=== PATIENT | female | born 1985 | race Caucasian/White ===

== ENCOUNTER 2017-12-19 12:48 | Emergency (ER) | payer SELFPAY ==
[2017-12-19] MEDS ORDERED: HYDROCODONE/CHLORPHEN 5 ML/OSYR ONE (13:54)
[2017-12-19] MEDS ORDERED: ALBUTEROL 2.5 MG/3 ML NEB SOL ONE (13:54)
[2017-12-19] MEDS ORDERED: IPRATROPIUM BROM 0.5MG/2.5ML ONE (13:54)
[2017-12-19] MEDS ORDERED: CEFTRIAXONE 1000 MG/VIAL ONE (13:55)
[2017-12-19] MEDS ORDERED: FAMOTIDINE 20 MG TAB ONE (13:55)
[2017-12-19] MEDS ORDERED: predniSONE 20 MG TAB ONE (13:55)
[2017-12-19 14:21] LABS: Urine Blood 2+ (NEG); Urine Glucose NEGATIVE (NEG); Urine Protein TRACE (NEG)
[2017-12-19 14:27] LABS: Urine Bacteria 20-50 /HPF (<20)
[2017-12-19 14:28] LABS: Urine Culture Reflex Order REFLEXED
--- NOTE | 2017-12-19 15:08 | RAD REPORT ---
EXAM DESCRIPTION: Daniela Jolly (2 Views)12/19/2017 2:52 pm CLINICAL HISTORY: Cough COMPARISON: None FINDINGS: The lungs appear clear of acute infiltrate. The heart is normal size IMPRESSION: No acute abnormalities displayed
--- NOTE | 2017-12-19 15:09 | EDPHYS ---
Physician Documentation [facility] Name: Siomara Bhardwaj Age: 32 yrs Sex: Female : 1985 Arrival Date: 12/19/2017 Time: 12:49 Bed 20 Private MD: ED Physician Donny Bhat HPI: 12/19 13:52 This 32 yrs old Female presents to ER via Ambulatory with complaints of snw Cough, Chest Wall Pain. 13:52 The patient or guardian reports cough, flu symptoms, hoarse voice. Onset: The snw symptoms/episode began/occurred 1 week(s) ago, and became worse and became persistent. Severity of symptoms: At their worst the symptoms were moderate, severe. Associated signs and symptoms: Pertinent positives: earache, nausea, sore throat, vomiting. The patient has experienced similar episodes in the past. The patient has been recently seen by a physician: other ED one week ago - dx with rhinitis. 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 - Social history:: Smoking status: Patient uses tobacco products, smokes one-half pack cigarettes per day. ROS: 13:50 Eyes: Negative for injury, pain, redness, and discharge. snw 13:50 Neck: Negative for injury, pain, and swelling, Cardiovascular: Negative for chest pain, palpitations, and edema. 13:50 Back: Negative for injury and pain, : Negative for injury, bleeding, discharge, and swelling, MS/Extremity: Negative for injury and deformity, Skin: Negative for injury, rash, and discoloration, Neuro: Negative for headache, weakness, numbness, tingling, and seizure. 13:50 Constitutional: Positive for body aches, fatigue, fever, malaise. 13:50 ENT: Positive for ear pain, nasal discharge, sinus congestion, sore throat. 13:50 Respiratory: Positive for cough, shortness of breath, wheezing. 13:50 Abdomen/GI: Positive for vomiting. Exam: 13:50 Head/Face: Normocephalic, atraumatic. Eyes: Pupils equal round and reactive to light, snw extra-ocular motions intact. Lids and lashes normal. Conjunctiva and sclera are non-icteric and not injected. Cornea within normal limits. Periorbital areas with no swelling, redness, or edema. 13:50 Neck: Trachea midline, no thyromegaly or masses palpated, and no cervical lymphadenopathy. Supple, full range of motion without nuchal rigidity, or vertebral point tenderness. No Meningismus. Chest/axilla: Normal chest wall appearance and motion. Nontender with no deformity. No lesions are appreciated. Cardiovascular: Regular rate and rhythm with a normal S1 and S2. No gallops, murmurs, or rubs. Normal PMI, no JVD. No pulse deficits. 13:50 Abdomen/GI: Soft, non-tender, with normal bowel sounds. No distension or tympany. No guarding or rebound. No evidence of tenderness throughout. Back: No spinal tenderness. No costovertebral tenderness. Full range of motion. Skin: Warm, dry with normal turgor. Normal color with no rashes, no lesions, and no evidence of cellulitis. MS/ Extremity: Pulses equal, no cyanosis. Neurovascular intact. Full, normal range of motion. Neuro: Awake and alert, GCS 15, oriented to person, place, time, and situation. Cranial nerves II-XII grossly intact. Motor strength 5/5 in all extremities. Sensory grossly intact. Cerebellar exam normal. Normal gait. 13:50 Constitutional: The patient appears alert, awake, anxious, uncomfortable. 13:50 ENT: TM's: bulging, on the left, erythema, Examination of the other ear shows no obvious abnormality, Nose: is normal, Mouth: is normal, Posterior pharynx: erythema, that is moderate, Voice: is hoarse. 13:50 Respiratory: the patient does not display signs of respiratory distress, Respirations: normal, shallow respirations, Breath sounds: bronchial sounds, rhonchi, that are mild, are located in both bases, + upper airway congestion. Vital Signs: 13:02 BP 159 / 95; Pulse 74; Resp 16; Temp 98.4; Pulse Ox 94% on R/A; Weight 65.77 kg; Height la1 5 ft. 7 in. (170.18 cm); 14:00 BP 149 / 84; Pulse 56; Resp 19; Pulse Ox 94% on R/A; rb1 14:30 BP 134 / 80; Pulse 91; Resp 18; Pulse Ox 94% on R/A; rb1 15:20 BP 133 / 72; Pulse 89; Resp 17; Pulse Ox 94% on R/A; rb1 13:02 Body Mass Index 22.71 (65.77 kg, 170.18 cm) la1 MDM: 13:28 Patient medically screened. snw 15:09 Data reviewed: vital signs, nurses notes. Data interpreted: Pulse oximetry: on room air snw is 94 %. Interpretation: acceptable. Counseling: I had a detailed discussion with the patient and/or guardian regarding: the historical points, exam findings, and any diagnostic results supporting the discharge/admit diagnosis, the presence of at least one elevated blood pressure reading (>120/80) during this emergency department visit, radiology results, the need for outpatient follow up, to return to the emergency department if symptoms worsen or persist or if there are any questions or concerns that arise at home. Response to treatment: the patient's symptoms have mildly improved after treatment. Special discussion: Based on the history and exam findings, there is no indication for further emergent testing or inpatient evaluation. I discussed with the patient/guardian the need to see the primary care provider for further evaluation of the symptoms. 12/19 12:58 Order name: Urine Microscopic Only; Complete Time: 14:32 snw 12/19 13:52 Order name: Urine Dipstick--Ancillary (enter results); Complete Time: 14:22 eb 12/19 12:58 Order name: Chest Pa And Lat (2 Views) XRAY; Complete Time: 15:11 snw 12/19 13:52 Order name: Urine --Ancillary (enter results); Complete Time: 14:22 eb 12/19 14:29 Order name: Urine Culture EDMS 12/19 12:58 Order name: Urine Test (obtain specimen); Complete Time: 13:49 snw 12/19 12:58 Order name: Urine Dipstick-Ancillary (obtain specimen); Complete Time: 13:49 snw Administered Medications: 13:55 Drug: Tussionex Pennkinetic ER 5 ml Route: PO; rb1 14:30 Follow up: Response: No adverse reaction; Other; coughing decrease. rb1 13:55 Drug: predniSONE 40 mg Route: PO; rb1 14:30 Follow up: Response: No adverse reaction rb1 13:55 Drug: Pepcid 20 mg Route: PO; rb1 14:30 Follow up: Response: No adverse reaction rb1 13:55 Drug: Rocephin (cefTRIAXone) 1 grams Route: IM; Site: right gluteus; rb1 14:15 Follow up: Response: No adverse reaction rb1 13:55 Drug: Albuterol - atroVENT (3:1) (2.5 mg - 0.5 mg) 3 ml Route: Nebulizer; rb1 14:20 Follow up: Response: No adverse reaction; Marked relief of symptoms rb1 Disposition: 12/19/17 15:08 Discharged to Home. Impression: Bronchitis, not specified as acute or chronic, Acute pharyngitis. - Condition is Stable. - Discharge Instructions: Acute Bronchitis, Fever, Adult, Hypertension, How to Use an Inhaler, Pharyngitis, Smoking Cessation, Cool Mist Vaporizers, Cough, Adult, Rehydration, Adult. - Prescriptions for Tessalon Perles 100 mg Oral Capsule - take 1 capsule by ORAL route every 8 hours As needed; 15 capsule. Zithromax Z- Cristhian 250 mg Oral Tablet - take 1 tablet by ORAL route as directed for 5 days Day 1 - take two (2) tablets one time. Day 2, 3, 4 , 5 take one (1) tablet once daily.; 6 tablet. Prednisone 20 mg Oral Tablet - take 2 tablet by ORAL route once daily for 5 days; 10 tablet. Albuterol Sulfate 90 mcg/actuation - inhale 1-2 puff by INHALATION route every 4-6 hours; 1 Inhaler. - Work release form, Medication Reconciliation Form, Thank You Letter, Antibiotic Education, Prescription Opioid Use form. - Follow up: Private Physician; When: 2 - 3 days; Reason: Recheck today's complaints, Continuance of care, Re-evaluation by your physician. Follow up: Emergency Department; When: As needed; Reason: Worsening of condition. Signatures: Dispatcher [employer] EDIL Soni Odell FNP-C FNP-Song Christine RN RN la1 Alesia Brantley, RN RN rb1
--- NOTE | 2017-12-19 15:09 | ER ---
Nurse's Notes [facility] Name: Siomara Bhardwaj Age: 32 yrs Sex: Female : 1985 Arrival Date: 12/19/2017 Time: 12:49 Bed 20 Private MD: Diagnosis: Bronchitis, not specified as acute or chronic;Acute pharyngitis Presentation: 12/19 13:01 Presenting complaint: Patient states: I have been having a productive cough and SOB for la1 the last 5 days. Transition of care: patient was not received from another setting of care. Onset of symptoms was December 19, 2017. Initial Sepsis Screen: Does the patient meet any 2 criteria? No. Patient's initial sepsis screen is negative. Does the patient have a suspected source of infection? No. Patient's initial sepsis screen is negative. Care prior to arrival: None. 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 - Social history:: Smoking status: Patient uses tobacco products, smokes one-half pack cigarettes per day. Screenin:26 Abuse screen: Denies threats or abuse. Nutritional screening: No deficits noted. rb1 Tuberculosis screening: No symptoms or risk factors identified. Fall Risk None identified. Assessment: 13:28 General: Appears uncomfortable, Behavior is calm, cooperative, Denies fever. Pain: rb1 Complains of pain in ribs and throat Pain does not radiate. Pain currently is 9 out of 10 on a pain scale. Pain began x 5 days Aggravated by coughing. Neuro: Level of Consciousness is awake, alert, obeys commands, Oriented to person, place, time, situation. Cardiovascular: Capillary refill < 3 seconds is brisk in bilateral fingers. Respiratory: Reports cough that is dry, persistent Airway is patent Respiratory effort is even, unlabored, Respiratory pattern is regular, symmetrical, Breath sounds are diminished in right posterior lower lobe. GI: Reports vomiting, vomiting induced by cough. : No signs and/or symptoms were reported regarding the genitourinary system. EENT: Throat is reddened. Derm: Skin is pink, warm \T\ dry. Musculoskeletal: Range of motion: intact in all extremities. 14:25 Reassessment: Patient appears in no apparent distress at this time. Patient and/or rb1 family updated on plan of care and expected duration. Pain level reassessed. Patient is alert, oriented x 3, equal unlabored respirations, skin warm/dry/pink. 15:20 Reassessment: Patient appears in no apparent distress at this time. No changes from rb1 previously documented assessment. Vital Signs: 13:02 BP 159 / 95; Pulse 74; Resp 16; Temp 98.4; Pulse Ox 94% on R/A; Weight 65.77 kg; Height la1 5 ft. 7 in. (170.18 cm); 14:00 BP 149 / 84; Pulse 56; Resp 19; Pulse Ox 94% on R/A; rb1 14:30 BP 134 / 80; Pulse 91; Resp 18; Pulse Ox 94% on R/A; rb1 15:20 BP 133 / 72; Pulse 89; Resp 17; Pulse Ox 94% on R/A; rb1 13:02 Body Mass Index 22.71 (65.77 kg, 170.18 cm) la1 ED Course: 12:49 Patient arrived in ED. as 12:58 Son[facility] Od[facility]C [facility] snw 12:58 Donny Bhat MD is Attending Physician. snw 13:02 Triage completed. la1 13:02 Arm band placed on left wrist. la1 13:26 Alesia Brantley, RN is Primary Nurse. rb1 13:26 Patient has correct armband on for positive identification. Placed in gown. Bed in low rb1 position. Call light in reach. Side rails up X 1. Pulse ox on. NIBP on. 13:26 Patient maintains SpO2 saturation greater than 95% on room air. rb1 13:49 Urine collected: clean catch specimen, cloudy. dh3 14:44 Patient moved to radiology via wheelchair. ag1 14:46 Chest Pa And Lat (2 Views) XRAY In Process Unspecified. EDMS 15:30 No provider procedures requiring assistance completed. Patient did not have IV access rb1 during this emergency room visit. Administered Medications: 13:55 Drug: Tussionex Pennkinetic ER 5 ml Route: PO; rb1 14:30 Follow up: Response: No adverse reaction; Other; coughing decrease. rb1 13:55 Drug: predniSONE 40 mg Route: PO; rb1 14:30 Follow up: Response: No adverse reaction rb1 13:55 Drug: Pepcid 20 mg Route: PO; rb1 14:30 Follow up: Response: No adverse reaction rb1 13:55 Drug: Rocephin (cefTRIAXone) 1 grams Route: IM; Site: right gluteus; rb1 14:15 Follow up: Response: No adverse reaction rb1 13:55 Drug: Albuterol - atroVENT (3:1) (2.5 mg - 0.5 mg) 3 ml Route: Nebulizer; rb1 14:20 Follow up: Response: No adverse reaction; Marked relief of symptoms rb1 Outcome: 15:08 Discharge ordered by MD. durant 15:31 Patient left the ED. rb1 15:31 Discharged to home ambulatory. rb1 15:31 Condition: stable 15:31 Discharge instructions given to patient, Instructed on discharge instructions, follow up and referral plans. medication usage, Demonstrated understanding of instructions, follow-up care, medications, Prescriptions given X 4. Addendum: 12/24/2017 09:53 Addendum: Culture Results: Positive urine culture. Phone call Attempt #1 no answer, s s left VM. Signatures: Dispatcher [employer] EDMS Soni Odell, STATISTICAL FINANCIAL ANALYST-C STATISTICAL FINANCIAL ANALYST-Indigow Areli Richards Shelby, RN RN ss Attema, Lee, RN RN la1 Gallaway, Ashley [facility] Alesia Brantley RN RN rb1 Jodi Manuel 3
== END 2017-12-19 15:31 | disposition home or self-care (01) ==
LOC: ER 12:48
DX: J40 Bronchitis, not specified as acute or chronic (principal); J02.9 Acute pharyngitis, unspecified; Z88.6 Allergy status to analgesic agent
CPT/HCPCS: 71046; 81003; 81015; 81025; 87077; 87086; 87088; 87186; 94640; 96372; 99285; J7512

== ENCOUNTER 2018-03-06 13:17 | Emergency (ER) | payer SELFPAY ==
--- NOTE | 2018-03-06 14:33 | EDPHYS ---
Physician Documentation [facility] Name: Siomara Bhardwaj Age: 32 yrs Sex: Female : 1985 Arrival Date: 03/06/2018 Time: 13:20 Bed 12 Private MD: None, None ED Physician Uriel Akhtar HPI: 03/06 14:00 This 32 yrs old Female presents to ER via Ambulatory with complaints of Hand jmm Pain. 14:00 The patient or guardian reports pain. Onset: The symptoms/episode began/occurred today. jmm This is a 32 year old female with no chronic medical conditions that presents to the ED with bilateral hand pain beginning earlier today. The patient states having episodes of tingling to the hands. Patient also complains of ongoing pain to her legs for the past 3 weeks. The patient describes the pain as if she has just run a marathon. Denies fever.. 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 - Social history:: Smoking status: Patient uses tobacco products, smokes one-half pack cigarettes per day, Patient/guardian denies using alcohol. - Ebola Screening: : Patient negative for fever greater than or equal to 101.5 degrees Fahrenheit, and additional compatible Ebola Virus Disease symptoms Patient denies exposure to infectious person Patient denies travel to an Ebola-affected area in the 21 days before illness onset. ROS: 14:00 Constitutional: Negative for fever, chills, and weight loss, Cardiovascular: Negative jmm for chest pain, palpitations, and edema, Respiratory: Negative for shortness of breath, cough, wheezing, and pleuritic chest pain, Abdomen/GI: Negative for abdominal pain, nausea, vomiting, diarrhea, and constipation, Back: Negative for injury and pain, : Negative for injury, bleeding, discharge, and swelling. 14:00 MS/extremity: Positive for pain. 14:00 Neuro: Positive for tingling. 14:00 All other systems are negative. Exam: 14:00 Constitutional: This is a well developed, well nourished patient who is awake, alert, jmm and in no acute distress. Head/Face: atraumatic. Chest/axilla: Normal chest wall appearance and motion. Cardiovascular: Regular rate and rhythm. No edema appreciated Respiratory: Normal respirations, no respiratory distress appreciated Abdomen/GI: Non distended, soft Back: Normal ROM 14:00 Musculoskeletal/extremity: FROM appreciated to all extremitites. Tinnel sign bilaterally to the flexor retinaculum of the wrist. full reflexes and strength against resistance appreciated to the knee joints, NVI. 14:00 Skin: Appearance: Color: normal in color. 14:00 Neuro: Orientation: is normal, Mentation: is normal, Memory: is normal, Gait: is steady. 14:00 Psych: Behavior/mood is pleasant, cooperative. Vital Signs: 13:30 BP 115 / 74; Pulse 60; Resp 18; Temp 98.9(O); Pulse Ox 100% on R/A; Weight 72.57 kg; hj Height 5 ft. 6 in. (167.64 cm); Pain 6/10; 13:30 Body Mass Index 25.82 (72.57 kg, 167.64 cm) hj MDM: 14:00 Patient medically screened. jmm 14:00 Counseling: I had a detailed discussion with the patient and/or guardian regarding: the [facility] historical points, exam findings, and any diagnostic results supporting the discharge/admit diagnosis, the need for outpatient follow up, to return to the emergency department if symptoms worsen or persist or if there are any questions or concerns that arise at home. 14:30 ED course: Patient's PE findings are not concerning for an acute neurologic process, jmm due to complaints of paresthesias patient is given follow up information with neurology. I discussed patient care with Dr. Akhtar whom agrees with the plan of care. . 14:31 Data reviewed: vital signs, nurses notes. jm Administered Medications: No medications were administered Disposition: 03/06/18 14:32 Discharged to Home. Impression: Paresthesias. - Condition is Stable. - Discharge Instructions: Paresthesia. - Prescriptions for Medrol (Cristhian) 4 mg Oral Tablets, Dose Pack - take 1 tablet by ORAL route as directed - follow package instructions; 1 packet. - Medication Reconciliation Form, Thank You Letter, Antibiotic Education, Prescription Opioid Use form. - Follow up: Shawn Barroso MD; When: 2 - 3 days; Reason: Continuance of care. Addendum: 03/08/2018 09:17 Co-signature as Attending Physician, Uriel Akhtar MD I agree with the assessment and c figueroa plan of care. Signatures: Uriel Akhtar MD MD cha Mickail, Joel, PA PA jmm Williams, Irene, RN RN Apolinar Wilde RN RN Corrections: (The following items were deleted from the chart) 03/06 14:39 14:32 03/06/2018 14:32 Discharged to Home. Impression: Paresthesias. Condition is iw Stable. Forms are Medication Reconciliation Form, Thank You Letter, Antibiotic Education, Prescription Opioid Use. Follow up: Shawn Barroso; When: 2 - 3 days; Reason: Continuance of care. [facility]
--- NOTE | 2018-03-06 14:33 | ER ---
Nurse's Notes [facility] Name: Siomara Bhardwaj Age: 32 yrs Sex: Female : 1985 Arrival Date: 03/06/2018 Time: 13:20 Bed 12 Private MD: None, None Diagnosis: Paresthesias Presentation: 03/06 13:27 Presenting complaint: Patient states: my both hands are painful and swollen for 2 days hj already, i woke up with it; denies trauma to the area; reports tingling;. Transition of care: patient was not received from another setting of care. Onset of symptoms was March 06, 2018. Risk Assessment: Do you want to hurt yourself or someone else? Patient reports no desire to harm self or others. Initial Sepsis Screen: Does the patient meet any 2 criteria? No. Patient's initial sepsis screen is negative. Does the patient have a suspected source of infection? No. Patient's initial sepsis screen is negative. Care prior to arrival: None. 13:27 Method Of Arrival: Ambulatory 13:27 Acuity: JAIRO 4 hj Triage Assessment: 13:29 General: Appears in no apparent distress. uncomfortable, Behavior is calm, cooperative, hj appropriate for age. Pain: Complains of pain in right hand and left hand Pain currently is 6 out of 10 on a pain scale. 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 - Social history:: Smoking status: Patient uses tobacco products, smokes one-half pack cigarettes per day, Patient/guardian denies using alcohol. - Ebola Screening: : Patient negative for fever greater than or equal to 101.5 degrees Fahrenheit, and additional compatible Ebola Virus Disease symptoms Patient denies exposure to infectious person Patient denies travel to an Ebola-affected area in the 21 days before illness onset. Screenin:29 Abuse screen: Denies threats or abuse. Denies injuries from another. Nutritional hj screening: No deficits noted. Tuberculosis screening: No symptoms or risk factors identified. Fall Risk None identified. Assessment: 14:00 General: Appears in no apparent distress. comfortable, Behavior is calm, cooperative. iw Pain: Complains of pain in left hand and right hand. Neuro: Level of Consciousness is awake, alert, obeys commands, Moves all extremities. Full function. Cardiovascular: Patient's skin is warm and dry. Respiratory: Respiratory effort is even, unlabored, Respiratory pattern is regular. Derm: Skin is pink, warm \T\ dry. normal. Musculoskeletal: Range of motion: intact in all extremities. Vital Signs: 13:30 BP 115 / 74; Pulse 60; Resp 18; Temp 98.9(O); Pulse Ox 100% on R/A; Weight 72.57 kg; hj Height 5 ft. 6 in. (167.64 cm); Pain 6/10; 13:30 Body Mass Index 25.82 (72.57 kg, 167.64 cm) hj ED Course: 13:20 Patient arrived in ED. mr 13:20 None, None is Private Physician. mr 13:28 Triage completed. hj 13:30 Arm band placed on left wrist. hj 13:30 Patient has correct armband on for positive identification. Bed in low position. Call hj light in reach. Side rails up X 1. 13:48 Abraham Holt PA is PHCP. [facility] 13:48 Uriel Akhtar MD is Attending Physician. [facility] 14:31 Shawn Barroso MD is Referral Physician. [facility] 14:37 No provider procedures requiring assistance completed. Patient did not have IV access iw during this emergency room visit. 14:39 Deandra Beltran, RN is Primary Nurse. iw Administered Medications: No medications were administered Outcome: 14:32 Discharge ordered by . [facility] 14:38 Discharged to home ambulatory, with family. iw 14:38 Condition: good 14:38 Discharge instructions given to patient, family, Instructed on discharge instructions, follow up and referral plans. Demonstrated understanding of instructions, follow-up care, medications, Prescriptions given X 1. 14:39 Patient left the ED. iw Signatures: Abraham Holt PA PA jmm Rivera, Maria mr Deandra Beltran, RN RN Apolinar Wilde RN RN Corrections: (The following items were deleted from the chart) 13:32 13:30 Pulse 60bpm; Resp 18bpm; Pulse Ox 100% RA; Temp 98.9F Oral; 72.57 kg; Height 5 hj ft. 6 in.; BMI: 25.8; Pain 6/10; hj
== END 2018-03-06 14:39 | disposition home or self-care (01) ==
LOC: ER 13:17
DX: R20.2 Paresthesia of skin (principal); F17.210 Nicotine dependence, cigarettes, uncomplicated; Z88.6 Allergy status to analgesic agent
CPT/HCPCS: 99282

== ENCOUNTER 2018-04-30 00:17 | Emergency (ER) | payer SELFPAY ==
--- NOTE | 2018-04-30 01:06 | ER ---
Nurse's Notes [facility] Name: Siomara Bhardwaj Age: 32 yrs Sex: Female : 1985 Arrival Date: 04/30/2018 Time: 00:21 Bed 2 Private MD: Diagnosis: R labia rash Presentation: 04/30 00:26 Presenting complaint: Patient states: she noticed a "bump on my girl parts" this bb morning which has gotten progressively worse throughout the day with more pain and swelling. Transition of care: patient was not received from another setting of care. Onset of symptoms was April 29, 2018. Risk Assessment: Do you want to hurt yourself or someone else? Patient reports no desire to harm self or others. Initial Sepsis Screen: Does the patient meet any 2 criteria? No. Patient's initial sepsis screen is negative. Does the patient have a suspected source of infection? No. Patient's initial sepsis screen is negative. Care prior to arrival: None. 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 - Social history:: Smoking status: Patient uses tobacco products, smokes one-half pack cigarettes per day, Patient/guardian denies using alcohol, street drugs. - Ebola Screening: : No symptoms or risks identified at this time. - Family history:: not pertinent. - Hospitalizations: : No recent hospitalization is reported. Screenin:37 Abuse screen: Denies threats or abuse. Nutritional screening: No deficits noted. fc Tuberculosis screening: No symptoms or risk factors identified. Fall Risk None identified. Assessment: 00:38 General: Appears uncomfortable, slender, well groomed, Behavior is calm, cooperative, fc appropriate for age. Pain: Complains of pain in groin Pain currently is 7 out of 10 on a pain scale. Quality of pain is described as aching, dull, throbbing, Pain began gradually, Is continuous. Neuro: Level of Consciousness is awake, alert, obeys commands, Oriented to person, place, time, situation. Cardiovascular: No deficits noted. Respiratory: No deficits noted. GI: No deficits noted. : No deficits noted. EENT: No deficits noted. Derm: Skin is pink, warm \\T\\ dry. Abscess located on groin is quarter sized, is hot to touch, is red, is raised, with 2 small pinpoint leasions. Musculoskeletal: Circulation, motion, and sensation intact. Capillary refill < 3 seconds, Range of motion: intact in all extremities. 01:00 Reassessment: No changes from previously documented assessment. Patient and/or family fc updated on plan of care and expected duration. Pain level reassessed. Patient is alert, oriented x 3, equal unlabored respirations, skin warm/dry/pink. Seen by Dr Richardson. 01:19 Reassessment: Patient appears in no apparent distress at this time. Patient is alert, aa1 oriented x 3, equal unlabored respirations, skin warm/dry/pink. Discussed d/c \\T\\ f/u instructions with pt \\T\\ significant other; denies questions or concerns at this time. Vital Signs: 00:28 BP 116 / 70; Pulse 61; Resp 16 S; Temp 99; Pulse Ox 98% on R/A; Weight 68.04 kg (R); bb Height 5 ft. 6 in. (167.64 cm) (R); Pain 7/10; 00:28 Body Mass Index 24.21 (68.04 kg, 167.64 cm) bb ED Course: 00:21 Patient arrived in ED. es 00:27 Triage completed. bb 00:28 Arm band placed on right wrist. Patient placed in an exam room, on a stretcher, on bb pulse oximetry. Family accompanied patient. 00:31 Lc Richardson MD is Attending Physician. wa 00:37 Patient has correct armband on for positive identification. Placed in gown. Bed in low fc position. Call light in reach. 01:00 outer vaginal exam. fc 01:13 Patient did not have IV access during this emergency room visit. fc Administered Medications: No medications were administered Outcome: 01:06 Discharge ordered by . wa 01:19 Discharged to home ambulatory, with significant other. aa1 01:19 Condition: good 01:19 Discharge instructions given to patient, significant other, Instructed on discharge instructions, follow up and referral plans. medication usage, Demonstrated understanding of instructions, follow-up care, medications, Prescriptions given X 2. 01:21 Patient left the ED. aa1 Signatures: Nicole Alexander RN RN aa1 Erika Handy Felicia, RN RN fc Suyapa Bell RN RN Lc Richardson MD MD wa Corrections: (The following items were deleted from the chart) 01:12 00:38 Derm: Skin is pink, warm \\T\\ dry. Abscess located on groin is quarter sized, is hot fc to touch, is red, is raised, fc
--- NOTE | 2018-04-30 01:06 | EDPHYS ---
Physician Documentation [facility] Name: Siomara Bhardwaj Age: 32 yrs Sex: Female : 1985 Arrival Date: 04/30/2018 Time: 00:21 Bed 2 Private MD: ED Physician Lc Richardson HPI: 04/30 01:01 This 32 yrs old Female presents to ER via Ambulatory with complaints of wa POSSIBLE STAPH INFECTION. 01:01 The patient presents with pain and rash over the R vulva. . Onset: The symptoms/episode wa began/occurred yesterday. Modifying factors: The symptoms are alleviated by nothing, the symptoms are aggravated by touch or rubbing on clothes. Associated signs and symptoms: Pertinent negatives: dysuria, fever, urinary frequency, vaginal discharge. Severity of symptoms: At their worst the symptoms were moderate, in the emergency department the symptoms are unchanged. The patient has not experienced similar symptoms in the past. The patient has not recently seen a physician. spouse has h/o MRSA so believes this is. 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 - Social history:: Smoking status: Patient uses tobacco products, smokes one-half pack cigarettes per day, Patient/guardian denies using alcohol, street drugs. - Ebola Screening: : No symptoms or risks identified at this time. - Family history:: not pertinent. - Hospitalizations: : No recent hospitalization is reported. ROS: 01:03 Positive for rash on R labia. wa 01:03 Constitutional: Negative for fever, chills, and weight loss, Eyes: Negative for injury, pain, redness, and discharge, ENT: Negative for injury, pain, and discharge, Neck: Negative for injury, pain, and swelling, Cardiovascular: Negative for chest pain, palpitations, and edema, Respiratory: Negative for shortness of breath, cough, wheezing, and pleuritic chest pain, Abdomen/GI: Negative for abdominal pain, nausea, vomiting, diarrhea, and constipation, Back: Negative for injury and pain, MS/Extremity: Negative for injury and deformity, Skin: Negative for injury, rash, and discoloration, Neuro: Negative for headache, weakness, numbness, tingling, and seizure. 01:03 All other systems are negative. Exam: 01:03 Constitutional: This is a well developed, well nourished patient who is awake, alert, wa and in no acute distress. Head/Face: Normocephalic, atraumatic. Eyes: Pupils equal round and reactive to light, extra-ocular motions intact. Lids and lashes normal. Conjunctiva and sclera are non-icteric and not injected. Cornea within normal limits. Periorbital areas with no swelling, redness, or edema. ENT: Nares patent. No nasal discharge, no septal abnormalities noted. Tympanic membranes are normal and external auditory canals are clear. Oropharynx with no redness, swelling, or masses, exudates, or evidence of obstruction, uvula midline. Mucous membranes moist. Neck: Trachea midline, no thyromegaly or masses palpated, and no cervical lymphadenopathy. Supple, full range of motion without nuchal rigidity, or vertebral point tenderness. No Meningismus. Chest/axilla: Normal chest wall appearance and motion. Nontender with no deformity. No lesions are appreciated. Cardiovascular: Regular rate and rhythm with a normal S1 and S2. No gallops, murmurs, or rubs. Normal PMI, no JVD. No pulse deficits. Respiratory: Lungs have equal breath sounds bilaterally, clear to auscultation and percussion. No rales, rhonchi or wheezes noted. No increased work of breathing, no retractions or nasal flaring. Abdomen/GI: Soft, non-tender, with normal bowel sounds. No distension or tympany. No guarding or rebound. No evidence of tenderness throughout. Back: No spinal tenderness. No costovertebral tenderness. Full range of motion. Skin: Warm, dry with normal turgor. Normal color with no rashes, no lesions, and no evidence of cellulitis. MS/ Extremity: Pulses equal, no cyanosis. Neurovascular intact. Full, normal range of motion. Neuro: Awake and alert, GCS 15, oriented to person, place, time, and situation. Cranial nerves II-XII grossly intact. Motor strength 5/5 in all extremities. Sensory grossly intact. Cerebellar exam normal. Normal gait. Psych: Awake, alert, with orientation to person, place and time. Behavior, mood, and affect are within normal limits. 01:03 : Pelvic Exam: External exam: single blistered lesion R labia with surrounding edema and erythema. no fluctuance, the nurse was present for the exam. Vital Signs: 00:28 BP 116 / 70; Pulse 61; Resp 16 S; Temp 99; Pulse Ox 98% on R/A; Weight 68.04 kg (R); bb Height 5 ft. 6 in. (167.64 cm) (R); Pain 7/10; 00:28 Body Mass Index 24.21 (68.04 kg, 167.64 cm) bb MDM: 00:31 Patient medically screened. wa 01:04 Differential diagnosis: not ripe for I\T\D. painful to touch. consider bacterial vs wa herpetic source. Data reviewed: vital signs, nurses notes. 01:06 Patient medically screened. wa Administered Medications: No medications were administered Disposition: 04/30/18 01:06 Discharged to Home. Impression: R labia rash. - Condition is Stable. - Discharge Instructions: Rash, [id number]. - Prescriptions for Clindamycin HCl 300 mg Oral Capsule - take 1 capsule by ORAL route every 8 hours for 5 days; 15 capsule. Acyclovir 800 mg Oral Tablet - take 1 tablet by ORAL route 5 times per day for 5 days; 25 tablet. - Medication Reconciliation Form, Thank You Letter, Antibiotic Education, Prescription Opioid Use form. - Follow up: Private Physician; When: 1 - 2 days; Reason: Re-evaluation by your physician. - Problem is new. - Symptoms have improved. - Notes: see your doctor for further evaluation as discussed. return to ER for rapidly worsening concerns Signatures: Nicole Alexander RN RN aa1 Suyapa Bell RN RN bb Lc Richardson MD MD wa Corrections: (The following items were deleted from the chart) 01:21 01:06 04/30/2018 01:06 Discharged to Home. Impression: R labia rash. Condition is aa1 Stable. Forms are Medication Reconciliation Form, Thank You Letter, Antibiotic Education, Prescription Opioid Use. Follow up: Private Physician; When: 1 - 2 days; Reason: Re-evaluation by your physician. Problem is new. Symptoms have improved. wa
== END 2018-04-30 01:21 | disposition home or self-care (01) ==
LOC: ER 00:17
DX: R21 Rash and other nonspecific skin eruption (principal); I10 Essential (primary) hypertension; F17.210 Nicotine dependence, cigarettes, uncomplicated; Z88.2 Allergy status to sulfonamides; Z88.6 Allergy status to analgesic agent
CPT/HCPCS: 99283

== ENCOUNTER 2019-04-23 13:51 | Emergency (ER) | payer SELFPAY ==
--- OUTSIDE RECORDS SUMMARY | 2019-04-23 13:53 | XMS REPORT ---
:1985 [facility] [address] [place] [id number] Care Team Providers Name Role Phone Unavailable Unavailable Unavailable Problems This patient has no known problems. Allergies, Adverse Reactions, Alerts This patient has no known allergies or adverse reactions. Medications This patient has no known medications.
--- NOTE | 2019-04-23 15:42 | EDPHYS ---
Physician Documentation [facility] Name: Siomara Bhardwaj Age: 33 yrs Sex: Female : 1985 Arrival Date: 04/23/2019 Time: 13:54 Bed 12 Private MD: ED Physician Uriel Akhtar HPI: 04/23 15:38 This 33 yrs old Female presents to ER via Ambulatory with complaints of Rib pm1 pain. 15:38 Patient was lifting heavy object at work and felt a pop on right anterior rib area. pm1 Onset: The symptoms/episode began/occurred 3 day(s) ago. Severity of symptoms: in the emergency department the symptoms are unchanged. The patient has not experienced similar symptoms in the past. The patient has not recently seen a physician. No fever, shortness of breath, cough, abdominal pain, n/v/d. 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 - Social history:: Smoking status: Patient uses tobacco products, smokes one-half pack cigarettes per day. - Ebola Screening: : No symptoms or risks identified at this time. ROS: 15:38 Constitutional: Negative for fever, chills, and weight loss, Eyes: Negative for injury, pm1 pain, redness, and discharge, ENT: Negative for injury, pain, and discharge, Neck: Negative for injury, pain, and swelling, Cardiovascular: Negative for palpitations, and edema, Positive for right sided rib pain Respiratory: Negative for shortness of breath, cough, wheezing, and pleuritic chest pain, Abdomen/GI: Negative for abdominal pain, nausea, vomiting, diarrhea, and constipation, Back: Negative for injury and pain, MS/Extremity: Negative for injury and deformity, Skin: Negative for injury, rash, and discoloration, Neuro: Negative for headache, weakness, numbness, tingling, and seizure. Exam: 15:38 Constitutional: This is a well developed, well nourished patient who is awake, alert, pm1 and in no acute distress. Head/Face: Normocephalic, atraumatic. Eyes: Pupils equal round and reactive to light, extra-ocular motions intact. Lids and lashes normal. Conjunctiva and sclera are non-icteric and not injected. Cornea within normal limits. Periorbital areas with no swelling, redness, or edema. ENT: Nares patent. No nasal discharge, no septal abnormalities noted. Tympanic membranes are normal and external auditory canals are clear. Oropharynx with no redness, swelling, or masses, exudates, or evidence of obstruction, uvula midline. Mucous membranes moist. Neck: Trachea midline, no thyromegaly or masses palpated, and no cervical lymphadenopathy. Supple, full range of motion without nuchal rigidity, or vertebral point tenderness. No Meningismus. Cardiovascular: Regular rate and rhythm with a normal S1 and S2. No gallops, murmurs, or rubs. Normal PMI, no JVD. No pulse deficits. Respiratory: Lungs have equal breath sounds bilaterally, clear to auscultation and percussion. No rales, rhonchi or wheezes noted. No increased work of breathing, no retractions or nasal flaring. 15:38 Abdomen/GI: Soft, non-tender, with normal bowel sounds. No distension or tympany. No guarding or rebound. No evidence of tenderness throughout. Back: No spinal tenderness. No costovertebral tenderness. Full range of motion. Skin: Warm, dry with normal turgor. Normal color with no rashes, no lesions, and no evidence of cellulitis. MS/ Extremity: Pulses equal, no cyanosis. Neurovascular intact. Full, normal range of motion. 15:38 Chest/axilla: Inspection: normal, Palpation: tenderness, of the right anterior lower rib cage , that totally reproduces the patient's complaints. 15:38 Neuro: Orientation: is normal, Motor: is normal, moves all fours. Vital Signs: 14:23 BP 114 / 77; Pulse 64; Resp 18; Temp 97.6; Pulse Ox 100% on R/A; Weight 54.43 kg; ph Height 5 ft. 6 in. (167.64 cm); Pain 7/10; 14:23 Body Mass Index 19.37 (54.43 kg, 167.64 cm) ph MDM: 15:22 Patient medically screened. pm1 15:38 Data reviewed: vital signs. Data interpreted: Pulse oximetry: on room air is 100 %. pm1 Interpretation: normal. Counseling: I had a detailed discussion with the patient and/or guardian regarding: the historical points, exam findings, and any diagnostic results supporting the discharge/admit diagnosis, the need for outpatient follow up, to return to the emergency department if symptoms worsen or persist or if there are any questions or concerns that arise at home. 04/23 14:24 Order name: Chest Pa And Lat (2 Views) XRAY ph Administered Medications: 16:04 Drug: Nazlini 5 mg-325 mg 1 tabs {Note: RASS 0.} Route: PO; ph 16:04 Drug: Flexeril 10 mg Route: PO; ph Disposition: 16:37 Co-signature as Attending Physician, Uriel Akhtar MD I agree with the assessment and rosette plan of care. Disposition: 04/23/19 15:40 Discharged to Home. Impression: Strain of muscle and tendon of front wall of thorax. - Condition is Stable. - Discharge Instructions: Muscle Strain. - Prescriptions for Tylenol- Codeine #3 300-30 mg Oral Tablet - take 2 tablets by ORAL route every 6 hours As needed; 20 tablet. Cyclobenzaprine 10 mg Oral Tablet - take 1 tablet by ORAL route every 8 hours As needed; 30 tablet. Medrol (Cristhian) 4 mg Oral Tablets, Dose Pack - take 1 tablet by ORAL route as directed - follow package instructions; 1 packet. - Work release form, Medication Reconciliation Form, Thank You Letter, Antibiotic Education, Prescription Opioid Use form. - Follow up: Emergency Department; When: As needed; Reason: Worsening of condition. Follow up: Private Physician; When: 2 - 3 days; Reason: Recheck today's complaints, Continuance of care, Re-evaluation by your physician. - Problem is new. - Symptoms have improved. 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 Impression: Strain of muscle and tendon of ph front wall of thorax. Condition is Stable. Forms are Medication Reconciliation Form, Thank You Letter, Antibiotic Education, Prescription Opioid Use. Follow up: Emergency Department; When: As needed; Reason: Worsening of condition. Follow up: Private Physician; When: 2 - 3 days; Reason: Recheck today's complaints, Continuance of care, Re-evaluation by your physician. Problem is new. Symptoms have improved. pm1
--- NOTE | 2019-04-23 15:42 | ER ---
Nurse's Notes [facility] Name: Siomara Bhardwaj Age: 33 yrs Sex: Female : 1985 Arrival Date: 04/23/2019 Time: 13:54 Bed 12 Private MD: Diagnosis: Strain of muscle and tendon of front wall of thorax Presentation: 04/23 14:21 Presenting complaint: Patient states: R sided rib pain x 2- 3 days, denies injury, ph states,. 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 Transition of care: patient was not received from another setting of care. Onset of symptoms was April 23, 2019. Risk Assessment: Do you want to hurt yourself or someone else? Patient reports no desire to harm self or others. Initial Sepsis Screen: Does the patient meet any 2 criteria? No. Patient's initial sepsis screen is negative. Does the patient have a suspected source of infection? No. Patient's initial sepsis screen is negative. Care prior to arrival: None. 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 - Social history:: Smoking status: Patient uses tobacco products, smokes one-half pack cigarettes per day. - Ebola Screening: : No symptoms or risks identified at this time. Vital Signs: 14:23 BP 114 / 77; Pulse 64; Resp 18; Temp 97.6; Pulse Ox 100% on R/A; Weight 54.43 kg; ph Height 5 ft. 6 in. (167.64 cm); Pain 7/10; 14:23 Body Mass Index 19.37 (54.43 kg, 167.64 cm) ph ED Course: 13:54 Patient arrived in ED. mr 14:22 Triage completed. ph 14:24 Arm band placed on Patient placed in waiting room, Patient notified of wait time. X-ray ph ordered. 15:22 Marques Quick NP is PHCP. pm1 15:22 Uriel Akhtar MD is Attending Physician. pm1 15:23 Chest Pa And Lat (2 Views) XRAY In Process Unspecified. EDMS 15:55 Heena Stovall RN is Primary Nurse. ph Administered Medications: 16:04 Drug: [place] 5 mg-325 mg 1 tabs {Note: RASS 0.} Route: PO; ph 16:04 Drug: Flexeril 10 mg Route: PO; ph Outcome: 15:40 Discharge ordered by . pm1 16:04 Patient left the ED. ph Signatures: Dispatcher [employer] EDID Engel Delia mr Heena Stovall, SHASHI RN ph Marques Quick NP BEEF BREAKER pm1
[2019-04-23] MEDS ORDERED: CYCLOBENZAPRINE 10 MG TAB ONE (15:59)
[2019-04-23] MEDS ORDERED: HYDROCODONE/APAP 5/325 MG TAB ONE (15:59)
--- NOTE | 2019-04-23 16:13 | RAD REPORT ---
EXAM DESCRIPTION: RAD - Chest Pa And Lat (2 Views) - 04/23/2019 3:23 pm CLINICAL HISTORY: RIB PAIN - RIGHT COMPARISON: November 2017 TECHNIQUE: PA and lateral views of the chest were obtained. FINDINGS: The lungs are clear. Heart size is normal and central vasculature is within normal limit s. No pleural effusion or pneumothorax seen. No acute bony finding noted. No aortic abnormality. IMPRESSION: No acute cardiopulmonary process.
== END 2019-04-23 16:04 | disposition home or self-care (01) ==
LOC: ER 13:51
DX: S29.011A Strain of muscle and tendon of front wall of thorax, initial encounter (principal); X50.0XXA Overexertion from strenuous movement or load, initial encounter; Y93.89 Activity, other specified; Y92.89 Other specified places as the place of occurrence of the external cause; Y99.8 Other external cause status; Z88.2 Allergy status to sulfonamides; Z88.6 Allergy status to analgesic agent; Z88.8 Allergy status to other drugs, medicaments and biological substances; I10 Essential (primary) hypertension; F17.210 Nicotine dependence, cigarettes, uncomplicated
CPT/HCPCS: 71046; 99283